=== PATIENT | male | born 1995 | race Caucasian/White ===

== ENCOUNTER 2024-03-01 01:20 | Emergency (ER) | payer SELFPAY ==
[2024-03-01] MEDS: Lidocaine/Epineph/Tetracaine 3 ML Syringe ONE (01:58)
[2024-03-01] MEDS: Lidocaine/Epineph/Tetracaine 3 ML Syringe TOP ONE (01:58)
[2024-03-01] MEDS: HYDROmorphone 1 MG/ML Syringe IVPUSH ONE (02:48)
== END 2024-03-01 03:38 | disposition home or self-care (01) ==
LOC: JP.ED 01:20
DX: S42.022A Displaced fracture of shaft of left clavicle, initial encounter for closed fracture (principal); S01.112A Laceration without foreign body of left eyelid and periocular area, initial encounter; E10.9 Type 1 diabetes mellitus without complications; Z79.4 Long term (current) use of insulin; Y04.8XXA Assault by other bodily force, initial encounter
CPT/HCPCS: 12011; 70486; 73030; 96374; 99285; A9270; J1170; 99283

== ENCOUNTER 2024-03-09 08:06 | Day surgery (SDC) | payer OTHER ==
[2024-03-09 08:37] LABS: HEMATOCRIT 40.6 % (38.4-49.7); HEMOGLOBIN 14.9 g/dL (12.9-16.9); MEAN CORPUSCULAR HEMOGLOBIN 31.6 pg (31.6-35.5); MEAN CORPUSCULAR HGB CONC 36.7 g/dL (31.6-35.5); MEAN CORPUSCULAR VOLUME 86.2 fL (81.4-99.0); RED BLOOD CELL COUNT 4.71 M/uL (4.14-5.76); WHITE BLOOD CELL COUNT,WBC 4.4 K/uL (3.2-11.0)
[2024-03-09 08:53] LABS: ANION GAP 7.3 mmol/L (5.0-14.0); BLOOD UREA NITROGEN,BUN 21 mg/dL (7-18); CALCIUM 8.8 mg/dL (8.5-10.1); CARBON DIOXIDE,CO2 31 mmol/L (21-32); CHLORIDE,CL 104 mmol/L (100-108); ESTIMATED GFR 104 mL/min (>60); GLUCOSE RANDOM 111 mg/dL (74-106); SODIUM,NA 142 mmol/L (140-148)
[2024-03-09] MEDS ORDERED: Nozin Nasal Sanitizer NASBOTH ONE (09:00)
[2024-03-09] MEDS ORDERED: ceFAZolin 2 GM in Sodium Chloride 0.9% 50 ML IV ONE (09:30)
[2024-03-09] MEDS ORDERED: fentaNYL 250 MCG/5 ML SDV ONE ×2 (09:54→12:17)
[2024-03-09] MEDS ORDERED: Neostigmine Methylsulfate 10 MG/10 ML MDV ONE (09:55)
[2024-03-09] MEDS ORDERED: Glycopyrrolate 0.2 MG/ML 5 ML MDV ONE (09:55)
[2024-03-09] MEDS ORDERED: Succinylcholine 200 MG/10 ML MDV ONE (09:55)
[2024-03-09] MEDS ORDERED: Rocuronium 50 MG/5 ML Vial ONE (09:55)
[2024-03-09] MEDS ORDERED: Ondansetron 4 MG/2 ML SDV ONE (09:55)
[2024-03-09] MEDS ORDERED: Propofol 200 MG/20 ML SDV ONE (09:55)
[2024-03-09] MEDS ORDERED: Dexamethasone 4 MG/ML SDV ONE (09:55)
[2024-03-09] MEDS: ceFAZolin 2 GM in Premix Bag 1 BAG IV ONE (11:15)
[2024-03-09] MEDS: Bupivacaine 0.5% 30 ML SDV ONE (12:28)
[2024-03-09] MEDS: Morphine 2 MG/ML SYRINGE IVPUSH ONE (13:19)
[2024-03-09] MEDS: Acetaminophen/HYDROcodone 325-5 MG Tab PO ONE (13:58)
[2024-03-09] MEDS: Lactated Ringers 1,000 ML IV SCH (14:28)
== END 2024-03-09 15:26 | disposition home or self-care (01) ==
LOC: JP.SDS 08:06
PROVIDERS: ATTEND Specialist
DX: S42.022A Displaced fracture of shaft of left clavicle, initial encounter for closed fracture (principal); J45.909 Unspecified asthma, uncomplicated; X58.XXXA Exposure to other specified factors, initial encounter
CPT/HCPCS: 23515; 36415; 73000; 80048; 82947; 85027; A9270; C1713; J0330; J0665; J0690; J1100; J1596; J2270; J2405; J2704; J2710; J3010; J7120; 00450-QZ; J3490

== ENCOUNTER 2025-05-02 10:02 | Emergency (ER) | payer OTHER ==
[2025-05-02 12:16] LABS: BASOPHILS PERCENT AUTO 0.4 % (0.1-1.3); EOSINOPHILS ABSOLUTE AUTO 0.20 K/uL (0.00-0.40); EOSINOPHILS PERCENT AUTO 4.3 % (0.0-5.4); IMMATURE GRAN PERCENT AUTO 0.0 % (0.0-0.7); LYMPHOCYTES ABSOLUTE AUTO 1.60 K/uL (0.8-3.3); LYMPHOCYTES PERCENT AUTO 34.3 % (11.4-47.7); MONOCYTES ABSOLUTE AUTO 0.30 K/uL (0.20-0.90); MONOCYTES PERCENT AUTO 6.4 % (3.3-12.6); NEUTROPHILS ABSOLUTE AUTO 2.55 K/uL (1.0-7.6); NEUTROPHILS PERCENT AUTO 54.6 % (40.0-78.1); PLATELET COUNT,PLT 189 K/uL (130-375); RED BLOOD CELL COUNT 4.72 M/uL (4.14-5.76); WHITE BLOOD CELL COUNT,WBC 4.7 K/uL (3.2-11.0)
[2025-05-02 12:18] LABS: BASOPHILS ABSOLUTE AUTO 0.02 K/uL (0.00-0.10); IMMATURE GRAN ABSOLUTE AUTO 0.00 K/uL (0.00-0.23)
[2025-05-02 12:44] LABS: A/G RATIO 1.6 (1.2-2.2); ALANINE AMINOTRANSFERASE,ALT 21 U/L (12-78); ASPARTATE AMNIOTRANSFERASE,AST 10 U/L (15-37); BILIRUBIN TOTAL 0.6 mg/dL (0.2-1.0); BLOOD UREA NITROGEN,BUN 14 mg/dL (7-18); CARBON DIOXIDE,CO2 30 mmol/L (21-32); CHLORIDE,CL 105 mmol/L (100-108); CREATININE 1.0 mg/dL (0.8-1.3); EST CRCL DRUG DOSING (CG) 112.95 mL/min; ESTIMATED GFR 103 mL/min (>60); GLUCOSE RANDOM 228 mg/dL (74-106); POTASSIUM,K 4.1 mmol/L (3.6-5.2); PROTEIN TOTAL,TP 6.9 g/dL (6.4-8.2); SODIUM,NA 141 mmol/L (140-148)
[2025-05-02 13:19] LABS: APPEARANCE,URINE CLEAR (CLEAR); GLUCOSE,URINE 500 mg/dL (NEGATIVE); OCCULT BLOOD,URINE NEGATIVE (NEGATIVE)
[2025-05-02 13:23] LABS: AMPHETAMINES SCREEN, URINE NEGATIVE (NEGATIVE); METHADONE SCREEN, URINE NEGATIVE (NEGATIVE); METHAMPHETAMINES SCREEN, URINE NEGATIVE (NEGATIVE); OXYCODONE SCREEN,URINE NEGATIVE (NEGATIVE); PROPOXYPHENE SCREEN,URINE NEGATIVE (NEGATIVE); THC SCREEN,URINE 50 NG/ML NEGATIVE (NEGATIVE)
== END 2025-05-02 17:03 | disposition home or self-care (01) ==
LOC: JP.ED 10:02
DX: R07.89 Other chest pain (principal); F32.89 Other specified depressive episodes; E10.9 Type 1 diabetes mellitus without complications; F17.210 Nicotine dependence, cigarettes, uncomplicated; Z79.4 Long term (current) use of insulin
CPT/HCPCS: 36415; 71046; 80053; 80305; 80307; 81003; 84484; 85025; 85379; 93005; 99285; A9270